=== PATIENT | male | born 1960 | race Two or more races ===

== ENCOUNTER 2017-11-30 13:46 | Emergency (ER) | payer BC, OTHER ==
[2017-11-30] MEDS ORDERED: Ketorolac 30 MG/ML SDV IM ONE (14:10)
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
--- NOTE | 2017-12-03 10:35 | CR ---
INDICATION: Left chest wall pain, status post colon resection in December,. Pain is in lower ribs. CHEST: PA and lateral views of the chest revealed the heart to be normal in size and shape. There is suggestion of some minimal calcification in the arch of the aorta. Moderate degenerative changes are noted in the mid to lower thoracic spine. A mild degree of COPD may be present with slightly flattened diaphragm leaves and prominent AP diameter with interdigitation of the right hemidiaphragm leaf. An active infiltrate, effusion, contusion, or pneumothorax was not identified. A metallic density at the left apical lung most likely is artifactual. No displaced rib fractures are identified. IMPRESSION: No acute process. MTDD
== END 2017-11-30 15:12 | disposition home or self-care (01) ==
LOC: FB.ED 13:46
DX: M94.0 Chondrocostal junction syndrome [Tietze] (principal); X50.0XXA Overexertion from strenuous movement or load, initial encounter
CPT/HCPCS: 71046; 94150; 96372; 99283; J1885